=== PATIENT | male | born 1970 | race African-American/Black ===

== ENCOUNTER 2018-03-06 08:47 | Day surgery (SDC) | payer MEDICARE, OTHER ==
[~2018-03-06] VITALS: Ht 182.9 cm; Wt 88.5 kg
--- NOTE | ~2018-03-06 | OP ---
PATIENT NAME: ANTHONY MAYBERRY MEDICAL RECORD: [id number] :66 LOCATION:[facility] ADMISSION DATE: SURGEON: LAIM ALONSO MD DATE OF OPERATION: 03/06/2018 He was an outpatient. He was referred by Dr. Navid Aburto of [place] and Dr. Wan. 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 OPERATION PERFORMED: Implantation of a left brachial to axillary Acuseal AV graft with ligation of previous existing fistula. ANESTHESIA: General with an LMA per PERSONAL CARE WORKER. SURGEON: Liam Alonso MD PREOPERATIVE NOTE: Mr. Mayberry is an extremely nice young man on chronic hemodialysis. 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 I had recommended to him that he have a graft replacement implanted before this fistula thrombosed and he is brought to the operating room as an outpatient for an elective procedure today. His nephrologists in [place] are Dr. Navid Aburto and Dr. Wan. OPERATION: The patient was placed on operating table in supine position and general anesthesia was administered by PERSONAL CARE WORKER. The left arm was approached through 2 incisions, one proximally over the basilic axillary vein, exposing the proximal end of the endovascular stent. The vein was dissected there and controlled with Silastic loops. Another incision at the antecubital space or just above it through the old scar on the medial aspect was used to expose the previous vein to brachial artery anastomosis. The fistula was then ligated close to the arterial anastomosis. The fistula was controlled just proximal to the arterial anastomosis without fully dissecting the brachial artery. The fistula was clamped and transected above that level. An Acuseal 6-mm diameter PTFE graft was sutured end-to-end with running 6-0 Prolene and the suture line sealed with BioGlue. The graft and the arterial anastomosis in brachial artery were then allowed to backbleed and were then flushed with heparinized saline. The graft was again clamped and it was placed in a curving subcutaneous tunnel close to the surface, taking the graft to a more anterior and lateral position before coming back to the axilla or just below the axilla. The fistula was ligated just above the stented segment and the vein occluded with Silastic loops and clamps. A longitudinal venotomy was made and the vein was flushed with heparinized saline. The graft was then shortened, bevelled, and anastomosed end-to-side, end of graft to side of vein with running 6-0 Prolene and BioGlue. When the anastomoses were complete and the clamps removed, excellent flow was established immediately and the suture lines were quite hemostatic. There was very good continuous pulsatile signal from the handheld Doppler as well. The wounds were irrigated with saline, infiltrated with 0.25% Marcaine without epinephrine, and closed with interrupted inverted 3-0 Vicryl and then running OPERATIVE REPORT [id number] ANTHONY MAYBERRY intracuticular 4-0 Monocryl and Dermabond glue. They were dressed with Maxorb Ag, Tegaderm, and Cavilon skin prep. The patient was awakened and taken to the recovery room in stable condition. Blood loss was minimal, 10 cc at most, none was replaced. Sponges, instruments, and needles were accounted for. No drain was used and no surgical specimen was submitted for histopathology. PLAN: The patient will be discharged to home and continue his home medications, diet, and routine dialysis schedule. The dialysis unit will be instructed to use Acuseal protocol for 2 weeks starting with his first dialysis with his fistula tomorrow. He will return to see me in the office the following week. TRANSINT:[id number] Voice Confirmation ID: [id number] DOCUMENT ID: [id number] CC: Quang Cruz, LIAM ALONSO MD CC: QUANG ANDUJAR and ERLIN WAN MD [id number] DICTATION DATE: 03/19/18 1308 GIS PROGRAMMER: 03/19/18 1345 [facility] 03/06/18 [facility] [address] [id number]
[2018-03-06 09:07] LABS: BASOPHILS 0.5 % (0-2); EOSINOPHILS 3.8 % (0-7); HEMATOCRIT 44.3 % (42.0-54.0); LYMPHOCYTES 26.9 % (15-50); MCH 27.7 pg (26.0-34.0); MCHC 31.6 g/dL (31.0-37.0); MCV 87.7 fL (80.0-100.0); MEAN PLATELET VOLUME 9.7 fL (7.4-10.4); MONOCYTES 8.4 % (2-11); NEUTROPHILS 60.4 % (40-80); PLATELET COUNT 238 10x3/uL (130-400); RBC 5.05 10x6/uL (4.20-6.10); RDW 14.8 % (11.5-14.5); WBC 5.7 10x3/uL (4.8-10.8)
[2018-03-06 09:26] LABS: ANION GAP 21.3 mmol/L (8-16); CALCIUM 8.8 mg/dL (8.5-10.1); CARBON DIOXIDE 24.8 mmol/L (21.0-32.0); CREATININE - SERUM 15.4 mg/dL (0.6-1.3); POTASSIUM - SERUM 4.1 mmol/L (3.5-5.1)
[2018-03-06 09:30] LABS: APTT 30.8 SECONDS (22.8-39.4); INR 0.97 (0.85-1.17); PROTIME 12.5 SECONDS (11.6-15.0)
[2018-03-06 10:05] VITALS: Ht 182.9 cm; Wt 88.5 kg
[2018-03-06] MEDS ORDERED: VELTASSA8.4 GM PO (10:29)
[2018-03-06] MEDS ORDERED: RENA-VITE TABL0.8 MG PO (10:29)
[2018-03-06] MEDS ORDERED: PLAVIX75 MG PO (10:30)
[2018-03-06] MEDS ORDERED: VITAMIN D250000 UNIT PO (10:30)
[2018-03-06] MEDS ORDERED: TUMS X-STR300 MG PO (10:31)
== END 2018-03-06 18:00 | disposition home or self-care (01) ==
LOC: D.OPS 08:47
PROVIDERS: Surgery
DX: T82.590A Other mechanical complication of surgically created arteriovenous fistula, initial encounter (principal); N18.6 End stage renal disease; Z99.2 Dependence on renal dialysis; Z95.810 Presence of automatic (implantable) cardiac defibrillator; Z01.812 Encounter for preprocedural laboratory examination